=== PATIENT | male | born 1990 | race African-American/Black ===

== ENCOUNTER 2017-06-22 11:52 | Emergency (ER) | payer BC ==
[2017-06-22 11:56] VITALS: BP 149/79; PULSE 94; TEMP 98.3; BMI 32.5
[2017-06-22] MEDS ORDERED: IBUPROFEN 400 MG TABLET (FP) PO ONE ×2 (12:21→12:23)
--- NOTE | 2017-06-22 12:36 | PDOC ---
History of Present Illness - General Chief Complaint: Injury Stated Complaint: INJURY Time Seen by Provider: 06/22/17 11:59 History Source: Patient - History of Present Illness Occurred: reports: yesterday Severity: Yes: moderate Lower Extremity Pain Location: left: foot Past History - Past Medical History Allergies/Adverse Reactions: Allergies Allergy/AdvReac Type Severity Reaction Status Date / Time No Known Allergies Allergy Verified 06/22/17 11:54 Home Medications: Ambulatory Orders NK [No Known Home Medication] 06/22/17 Other medical history: none - Suicide/Smoking/Psychosocial Hx Smoking History: Never smoked Information on smoking cessation initiated: No Hx Alcohol Use: No Drug/Substance Use Hx: No Substance Use Type: None Review of Systems - Review of Systems Musculoskeletal: Yes: Joint Pain. No: Joint Swelling *Physical Exam - Vital Signs Last Vital Signs Temp Pulse Resp BP Pulse Ox 98.3 F 94 H 18 149/79 100 06/22/17 11:55 06/22/17 11:55 06/22/17 11:55 06/22/17 11:55 06/22/17 11:55 - Physical Exam General Appearance: Yes: Appropriately Dressed. No: Apparent Distress HEENT: positive: Normal Voice Neck: positive: Supple Respiratory/Chest: negative: Respiratory Distress Extremity: positive: Normal Inspection, Tender (to arch of L foot, no swelling, neg lee's test, ankle without swelling or ttp) Integumentary: positive: Dry, Warm Neurologic: positive: Fully Oriented, Alert, Normal Mood/Affect ED Treatment Course - RADIOLOGY Radiology Studies Ordered: Category Date Time Status ANKLE & FOOT-LEFT* [RAD] Stat Radiology 06/22/17 12:21 Ordered Medical Decision Making - Medical Decision Making 06/22/17 12:22 27-year-old male, no significant history here with left foot pain after playing football yesterday. Patient states he does not remember any specific injury and did not fall but that he developed pain to left sole while running. Has had pain to site since, worse with weight bearing. Has not taken anything for pain See exam M/l foot sprain -xr r/o fx -pain control 06/22/17 12:37 06/22/17 12:43 XR neg for fx. Pt discharged with crutches, otc pain control and ortho f/u as needed 06/22/17 12:45 *DC/Admit/Observation/Transfer Diagnosis at time of Disposition: Foot sprain Qualifiers: Encounter type: initial encounter Laterality: left Qualified Code(s): S93.602A - Unspecified sprain of left foot, initial encounter - Discharge Dispostion Disposition: HOME Condition at time of disposition: Good - Referrals Referrals: Jeffery Poole MD [Staff Physician] - - Patient Instructions Additional Instructions: X-ray does not show any fracture. You most likely have a sprain. Take Motrin as needed for pain and use crutches as needed until pain resolves. If after 2 weeks you're still having pain, please follow-up with Dr. Poole of orthopedics
== END 2017-06-22 12:49 | disposition home or self-care (01) ==
LOC: JERFT 11:52
DX: S93.602A Unspecified sprain of left foot, initial encounter (principal); X58.XXXA Exposure to other specified factors, initial encounter; Y93.89 Activity, other specified; Y92.9 Unspecified place or not applicable
CPT/HCPCS: 73610-TC-LT; 73630-TC-LT; 99281-25